=== PATIENT | female | born 1965 | race Asian ===

== ENCOUNTER 2018-08-22 12:35 | Outpatient (CLI) | payer OTHER ==
[~2018-08-22 12:35] MED LIST: ISOVUE-370 76%-LOCM 1 ML ONE
--- NOTE | 2018-08-22 15:05 | CT ---
CT ABDOMEN WITH AND WITHOUT IV CONTRAST: Date: 08/22/18 HISTORY: Abnormal LFTs. Patient has history of previous liver surgery. Gas, bloating, and constipation. FINDINGS: Lung bases are clear. There are calcified granulomas in the spleen. The liver, pancreas, adrenal glands, and left kidney ar e normal. There is mild right-sided hydronephrosis. There are postop changes of cholecystectomy. The small bowel loops are not abnormally dilated. No free air, free fluid, or lymphadenopathy is seen. A few prominent retroperitoneal lymph nodes are seen measuring up to 6.0 mm. No acute osseous abnormali ty identified. There are chronic changes, likely post-traumatic, in the left iliac bone. IMPRESSION: 1. Mild right hydronephrosis. 2. Status post cholecystectomy without evidence of biliary obstruction. POS: [facility]
== END 2018-08-22 12:36 | disposition home or self-care (01) ==
LOC: BICCT 12:35
PROVIDERS: ATTEND Family Medicine
DX: R79.89 Other specified abnormal findings of blood chemistry (principal); R14.0 Abdominal distension (gaseous); N13.30 Unspecified hydronephrosis; Z90.49 Acquired absence of other specified parts of digestive tract
CPT/HCPCS: 74170

== ENCOUNTER 2018-12-06 22:05 | Inpatient (IN) | payer OTHER ==
[2018-12-06 22:58] LABS: Bilirubin Moderate (Negative); Blood, Urine Negative (Negative); Clarity CLOUDY (Clear); Glucose, Urine (Dipstick) Negative (Negative); Leukocyte Small (Negative); Nitrite Positive (Negative); Protein, Urine (Dipstick) Trace mg/dL (Neg-Trace); pH, Urine 5.5 (5.0-9.0)
[2018-12-06 22:59] LABS: Pregnancy Test - Urine (BHCG) Negative (Negative); Pregu Control Background? CLEAR/WHITE (CLR/WHITE); Pregu Control Bar Appear? YES (CONTROL BAR)
[2018-12-06 23:13] LABS: RBC/HPF 0-3 HPF (0-3)
[2018-12-06 23:14] LABS: Crystals/HPF 2+ CA OXALATE HPF (Negative)
[2018-12-06 23:15] LABS: Bacteria/HPF Rare-Few HPF (None Seen)
[2018-12-06 23:16] LABS: Squamous Epithelial 0-3 HPF (0-3)
[2018-12-06] MEDS ORDERED: Ondansetron PF 4 MG/2 ML Vial ONE (23:19)
[2018-12-06] MEDS ORDERED: Pantoprazole 40 MG VIAL ONE (23:19)
[2018-12-07] MEDS ORDERED: cefTRIAXone\\ROCEPHIN 1 GM VIAL ONE (00:29)
[2018-12-07 00:33] LABS: ALT (SGPT) 474 U/L (8-55); AST (SGOT) 646 U/L (5-34); Alkaline Phosphatase 235 U/L (40-150); Anion Gap 17 mmol/L (10-20); BUN (Urea Nitrogen) 18 mg/dL (9.8-20.1); Bilirubin, Total 3.4 mg/dL (0.2-1.2); Calc. Creatinine Clearance 0 mL/min (70-130); Calcium 10.1 mg/dL (7.8-10.44); Carbon Dioxide 21 mmol/L (22-29); Chloride 106 mmol/L (98-107); Estimated GFR-MDRD 74; Glucose 119 mg/dL (70-105); Lipase 12 U/L (8-78); Potassium 3.5 mmol/L (3.5-5.1); Sodium 140 mmol/L (136-145)
[2018-12-07 00:34] LABS: Band 39 % (5-11); Hemoglobin 12.6 g/dL (12.0-16.0); Lymphocytes 4 % (21-51); MDiff Complete? YES; Mean Corpuscular HGB CONC 33.5 g/dL (32.0-36.0); Mean Corpuscular Hemoglobin 30.6 pg (27.0-31.0); Mean Corpuscular Volume 91.4 fL (78.0-98.0); Mean Platelet Volume 7.9 fL (7.4-10.4); Monocytes 1 % (0-10); Neutrophil 56 % (42-75); Platelet Count 195 thou/uL (130-400); Platelet Morphology Comment Appears Adequate; RBC Distribution Width 11.4 % (11.5-14.5); Red Blood Cell (RBC) Count 4.11 mill/uL (4.20-5.40); White Blood Cell (WBC) Count 7.1 thou/uL (4.8-10.8)
[2018-12-07] MEDS ORDERED: Morphine 4 MG/ML VIAL ONE (00:54)
[2018-12-07] MEDS ORDERED: Morphine 4 MG/ML VIAL SLOW IVP PRN ×2 (02:36→02:37)
[2018-12-07] MEDS ORDERED: Sodium Chloride 0.9% 1,000 ML IV SCH (02:37)
[2018-12-07] MEDS ORDERED: Ondansetron ODT 4 MG TAB SL PRN (02:37)
[2018-12-07] MEDS ORDERED: Ondansetron PF 4 MG/2 ML Vial IVP PRN (02:37)
[2018-12-07] MEDS ORDERED: Bisacodyl 5 MG TAB PO PRN (10:27)
[2018-12-07] MEDS ORDERED: Sodium Chloride 0.65% Nasal 44 ML BOT EA NARE PRN (10:27)
[2018-12-07] MEDS ORDERED: Acetaminophen 500 MG TAB PO PRN (10:27)
[2018-12-07] MEDS ORDERED: Diabetic Tussin 200 MG/10 ML UDCUP PO PRN (10:27)
[2018-12-07] MEDS ORDERED: Zolpidem Tartrate 5 MG TAB PO PRN (10:27)
[2018-12-07] MEDS ORDERED: Artificial Tears 18 DROP/0.9 ML EA EYE PRN (10:27)
[2018-12-07] MEDS ORDERED: Cepastat Lozenges 1 LOZ PO PRN (10:27)
[2018-12-07] MEDS ORDERED: hydrALAZINE 20 MG/ML VIAL SLOW IVP PRN (10:27)
[2018-12-07] MEDS ORDERED: Loratadine 10 MG TAB PO PRN (10:27)
[2018-12-07] MEDS ORDERED: Eucerin (Mineral Oil/Petrolatum,White) 30 gm Jar TOP PRN (10:27)
[2018-12-07] MEDS ORDERED: HYDROcodone/Acetaminophen 5/325 mg Tablet PO PRN (10:27)
[2018-12-07] MEDS ORDERED: Ondansetron ODT 4 MG TAB PO PRN (10:27)
[2018-12-07] MEDS ORDERED: Dextrose 50% Abboject 50 ML SYRINGE SLOW IVP PRN (10:29)
[2018-12-07] MEDS ORDERED: Dextrose 5% in Water 1,000 ML IV PRN (10:29)
[2018-12-07] MEDS ORDERED: HumaLOG 300 UNITS/3 ML VIAL SC PRN ×2 (10:29)
[2018-12-07 10:39] LABS: INR-International Normal Ratio 1.3; Prothrombin Time 16.4 SEC (12.0-14.7)
[2018-12-07 10:40] LABS: PTT 38.7 SEC (22.9-36.1)
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
--- NOTE | 2018-12-07 11:14 | PDOC.EVN ---
Event Note - Event Note Event Note: Patient seen and examined. please see H & P dictated by MAGDA. discussed plan with him.
[2018-12-07] MEDS ORDERED: Gadobenate Dimeglumine 529 MG/1 ML (20ML VIAL) ONE (11:39)
[2018-12-07] MEDS: Morphine 4 MG/ML VIAL SLOW IVP PRN ×3 (12:15→21:21)
[2018-12-07] MEDS: Ondansetron PF 4 MG/2 ML Vial IVP PRN ×2 (12:16→21:22)
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
[2018-12-07] MEDS: Cholestyramine/Aspartame 4 gm Packet PO SCH ×2 (12:28→22:58)
--- NOTE | 2018-12-07 13:12 | MRI ---
MRI ABDOMEN WITH AND WITHOUT CONTAST WITH MRCP: INDICATION: Jaundice. History of choledocholithiasis. Nausea and vomiting. History of gallbladder removal in 2 014 with biliary stent. COMPARISON: Correlation is made to CT 08/22/2018. Common bile duct was noted to be dilated on that exam with post op clips in the gallbladder fossa. No evidence of biliary stent. FINDINGS: ERCP reveals intra- and extrahepatic biliary duct dilatation. There appears to be occlusion of the l ower common duct within the region of the head of the pancreas. This dilated common duct reveals dave dence of debris with fluid-fluid level. There are numerous focal signal abnormalities consistent wit h numerous small stones within the common duct. On the postcontrast arterial phase sequence, there is abnormal enhancement in the liver which appears to be linear following biliary ductal structures. This is concerning for changes of intrahepatic ch olangitis. The postcontrast images of the liver are homogeneous with no focal enhancement or abnormality. The spleen, pancreas, adrenal glands, and kidneys are unremarkable. IMPRESSION: 1. Intra- and extrahepatic biliary duct dilatation. Evidence of common duct stricture/occlusion in the region of the head of the pancreas. Debris within the common duct exhibits a fluid-fluid level a nd there are numerous small stones identified within the common duct. 2. Abnormal patchy enhancement of the liver seen on arterial phase post contrast sequence concerning for intrahepatic cholangitis. POS: [facility]
[2018-12-07] MEDS: cefTRIAXone\\ROCEPHIN 1 GM in Sodium Chloride 0.9% 100 ML IVPB SCH (13:31)
[2018-12-07] MEDS: Metoclopramide HCl 10 MG/2 ML VIAL IVP PRN (17:20)
[2018-12-08] MEDS: Morphine 4 MG/ML VIAL SLOW IVP PRN ×2 (00:19→04:13)
[2018-12-08] MEDS: Metoclopramide HCl 10 MG/2 ML VIAL IVP PRN ×2 (00:20→18:24)
[2018-12-08] MEDS: Dextrose 5 %-0.45 % NaCl 1,000 ML IV SCH ×2 (03:25→22:48)
[2018-12-08] MEDS: Ondansetron PF 4 MG/2 ML Vial IVP PRN ×2 (04:14→14:16)
[2018-12-08 06:06] LABS: #Eosinphils 0.1 thou/uL (0.0-0.7); #Lymphocytes 0.9 thou/uL (1.20-3.40); #Monocytes 0.5 thou/uL (0.11-0.59); #Neutrophils 8.1 thou/uL (1.40-6.50); %Basophils 0.2 % (0.0-1.0); %Lymphocytes 9.1 % (21.0-51.0); %Monocytes 5.6 % (0.0-10.0); %Neutrophils 84.2 % (42.0-75.0); Hemoglobin 11.1 g/dL (12.0-16.0); Mean Corpuscular HGB CONC 33.1 g/dL (32.0-36.0); Mean Corpuscular Hemoglobin 30.8 pg (27.0-31.0); Mean Corpuscular Volume 93.2 fL (78.0-98.0); Mean Platelet Volume 8.6 fL (7.4-10.4); Platelet Count 173 thou/uL (130-400); RBC Distribution Width 11.5 % (11.5-14.5); Red Blood Cell (RBC) Count 3.62 mill/uL (4.20-5.40); White Blood Cell (WBC) Count 9.6 thou/uL (4.8-10.8)
[2018-12-08 06:20] LABS: ALT (SGPT) 250 U/L (8-55); AST (SGOT) 162 U/L (5-34); Albumin 3.4 g/dL (3.5-5.0); Alkaline Phosphatase 197 U/L (40-150); Anion Gap 12 mmol/L (10-20); BUN (Urea Nitrogen) 14 mg/dL (9.8-20.1); Bilirubin, Direct 2.9 mg/dL (0.1-0.3); Bilirubin, Total 4.4 mg/dL (0.2-1.2); Calc. Creatinine Clearance 153 mL/min (70-130); Calcium 8.8 mg/dL (7.8-10.44); Carbon Dioxide 21 mmol/L (22-29); Chloride 107 mmol/L (98-107); Estimated GFR-MDRD Greater than 90; Glucose 91 mg/dL (70-105); Protein, Total 6.2 g/dL (6.0-8.3); Sodium 137 mmol/L (136-145)
[2018-12-08 06:43] LABS: HBSAg Index 0.19 S/CO (0-0.99); Hep A IgM AB Non-Reactive (NonReactive); Hep B Surf Ag Non-Reactive S/CO (NonReactive); Hep C IgG Ab Non-Reactive (NonReactive); Hep C Index 0.07 S/CO (0-0.79); Hepatitis B Core IgM Abs Non-Reactive (NonReactive)
[2018-12-08] MEDS ORDERED: Midazolam HCl 2 mg/2 ml Vial ONE (08:13)
[2018-12-08] MEDS ORDERED: Fentanyl 100 MCG/2 ML VIAL ONE (08:13)
[2018-12-08] MEDS ORDERED: Ondansetron PF 4 MG/2 ML Vial ONE (09:25)
--- NOTE | 2018-12-08 09:41 | PDOC.PN ---
- Subjective Encounter Start Date: 12/08/18 Encounter Start Time: 07:50 -: old records requested/rev Patient seen and examined. c/o right UQ pain, No overnight events - Objective Resuscitation Status - Order Detail: 12/07/18 09:59 Resuscitation Status Routine Co-Sign Provider: Resuscitation Status: FULL: Full Resuscitation MAR Reviewed: Yes Vital Signs & Weight: Vital Signs (12 hours) Temp Pulse Resp BP Pulse Ox 12/08/18 07:18 98.5 F 68 20 105/64 95 12/08/18 04:00 98.5 F 71 16 110/67 96 12/08/18 00:00 98.7 F 73 18 116/67 96 Weight Weight 213 lb 13.574 oz I&O: 12/07/18 12/08/18 12/09/18 06:59 06:59 06:59 Intake Total 431 Balance 431 Result Diagrams: 12/08/18 05:24 12/08/18 05:24 Additional Labs: Accuchecks 12/08/18 12/07/18 12/07/18 06:25 21:22 16:11 POC Glucose 103 80 94 12/07/18 11:09 POC Glucose 81 Phys Exam - Physical Examination Constitutional: NAD HEENT: PERRLA, moist MMs, sclera anicteric Neck: no JVD, supple Respiratory: no wheezing, no rales, no rhonchi Cardiovascular: RRR, no significant murmur, no rub Gastrointestinal: soft, no distention, positive bowel sounds RUQ tenderness Musculoskeletal: no edema, pulses present Neurological: non-focal, normal sensation, moves all 4 limbs Lymphatic: no nodes Psychiatric: normal affect, A&O x 3 Skin: no rash, normal turgor Dx/Plan (1) Abnormal LFTs Code(s): R94.5 - ABNORMAL RESULTS OF LIVER FUNCTION STUDIES Status: Acute (2) Cholangitis Code(s): K83.09 - OTHER CHOLANGITIS Status: Acute (3) Choledocholithiasis with obstruction Code(s): K80.51 - CALCULUS OF BILE DUCT W/O CHOLANGITIS OR CHOLECYST W OBST Status: Acute (4) Hypokalemia Code(s): E87.6 - HYPOKALEMIA Status: Acute (5) UTI (urinary tract infection) Status: Acute (6) Diabetes type 2, controlled Code(s): E11.9 - TYPE 2 DIABETES MELLITUS WITHOUT COMPLICATIONS Status: Chronic (7) Obesity (BMI 30.0-34.9) Code(s): E66.9 - OBESITY, UNSPECIFIED Status: Chronic - Plan cont current plan of care, continue antibiotics * today ERCP * continue rocephin and levaquin * medication reviewed as below * symptomatic treatment * pain control and monitor labs. * continue ivf Review of Systems - Review of Systems Constitutional: negative: fever, chills, sweats, weakness, malaise, other Eyes: negative: Pain, Vision Change, Conjunctivae Inflammation, Eyelid Inflammation, Redness, Other ENT: negative: Ear Pain, Ear Discharge, Nose Pain, Nose Discharge, Nose Congestion, Mouth Pain, Mouth Swelling, Throat Pain, Throat Swelling, Other Respiratory: negative: Cough, Dry, Shortness of Breath, Hemoptysis, SOB with Excertion, Pleuritic Pain, Sputum, Wheezing Cardiovascular: negative: chest pain, palpitations, orthopnea, paroxysmal nocturnal dyspnea, edema, light headedness, other Gastrointestinal: Abdominal Pain. negative: Nausea, Vomiting, Diarrhea, Constipation, Melena, Hematochezia, Other Genitourinary: negative: Dysuria, Frequency, Incontinence, Hematuria, Retention , Other Musculoskeletal: negative: Neck Pain, Shoulder Pain, Arm Pain, Back Pain, Hand Pain, Leg Pain, Foot Pain, Other Skin: negative: Rash, Lesions, Stan, Bruising, Other - Medications/Allergies Allergies/Adverse Reactions: Allergies Allergy/AdvReac Type Severity Reaction Status Date / Time No Known Drug Allergies Allergy Verified 12/07/18 03:01 Medications: Current Medications Acetaminophen (Tylenol) 500 mg PO Q6H PRN PRN Reason: Mild Pain (1-3) Hydrocodone Bitart/Acetaminophen ([place] 5/325) 1 tab PO Q4H PRN PRN Reason: Moderate Pain (4-6) Artificial Tears (Tears Naturale) 2 drop EA EYE PRN PRN PRN Reason: Dry Eyes Bisacodyl (Dulcolax) 10 mg PO DAILYPRN PRN PRN Reason: Constipation Cholestyramine Resin (Questran Light) 4 gm PO 1000,2200 NIKKI Last Admin: 12/07/18 22:58 Dose: Not Given Dextrose/Water (Dextrose 50%) 25 gm SLOW IVP PRN PRN PRN Reason: Hypoglycemia Glucagon (Glucagon) 1 mg IM PRN PRN PRN Reason: Hypoglycemia Guaifenesin (Robitussin Sf) 200 mg PO Q4H PRN PRN Reason: Cough Hydralazine HCl (Apresoline) 10 mg SLOW IVP Q4H PRN PRN Reason: SBP > 180 and HR < 70 Ceftriaxone Sodium 1 gm/ (Sodium Chloride) 100 mls @ 0 mls/hr IVPB 1200 [facility] Last Admin: 12/07/18 13:31 Dose: 100 mls Levofloxacin 500 mg/ Device 100 mls @ 100 mls/hr IVPB 1100 [facility] Last Admin: 12/07/18 12:16 Dose: 100 mls Dextrose/Water (D5w) 1,000 mls @ 0 mls/hr IV .Q0M PRN PRN Reason: Hypoglycemia Dextrose/Sodium Chloride (D5 1/2 Ns) 1,000 mls @ 75 mls/hr IV .[id number] [facility] Last Admin: 12/08/18 03:25 Dose: 1,000 mls Insulin Human Lispro (Humalog) 0 units SC .MODERATE SLIDING SC PRN PRN Reason: Moderate Correctional Scale Insulin Human Lispro (Humalog) 0 units SC .BEDTIME SLIDING SC PRN PRN Reason: Bedtime Correctional Scale Loratadine (Claritin) 10 mg PO DAILYPRN PRN PRN Reason: Sinus Symptoms Metoclopramide HCl (Reglan) 5 mg IVP Q4H PRN PRN Reason: Nausea Last Admin: 12/08/18 00:20 Dose: 5 mg Mineral Oil/White Petrolatum (Eucerin Cream) 0 gm TOP BIDPRN PRN PRN Reason: Dry Skin Morphine Sulfate (Morphine) 4 mg SLOW IVP Q2H PRN PRN Reason: Severe Pain (7-10) Last Admin: 12/08/18 04:13 Dose: 4 mg Ondansetron HCl (Zofran Odt) 4 mg PO Q6H PRN PRN Reason: Nausea/Vomiting Ondansetron HCl (Zofran) 4 mg IVP Q6H PRN PRN Reason: Nausea/Vomiting Last Admin: 12/08/18 04:14 Dose: 4 mg Sodium Chloride (Flush - Normal Saline) 10 ml IVF Q12HR [facility] Last Admin: 12/07/18 22:58 Dose: Not Given Sodium Chloride (Flush - Normal Saline) 10 ml IVF PRN PRN PRN Reason: Saline Flush Sodium Chloride ([place] Nasal [place] 0.65%) 0 ml EA NARE QIDPRN PRN PRN Reason: Nasal Congestion Throat Lozenges (Cepastat Lozenges) 1 marija PO Q2H PRN PRN Reason: Sore Throat Zolpidem Tartrate (Ambien) 5 mg PO HSPRN PRN PRN Reason: Insomnia
[2018-12-08] MEDS ORDERED: Indomethacin 50 MG SUPP ONE (10:20)
[2018-12-08] MEDS ORDERED: Iothalamate Meglumine 60% 50 ML VIAL FS ONE (10:20)
[2018-12-08] MEDS ORDERED: Promethazine HCl 25 MG/ML VIAL IM PRN (11:19)
[2018-12-08] MEDS ORDERED: Promethazine HCl 25 MG/ML VIAL SLOW IVP PRN (11:19)
[2018-12-08] MEDS ORDERED: Ondansetron HCl/PF 4 MG/2 ML Vial IVP PRN (11:19)
[2018-12-08] MEDS: cefTRIAXone\\ROCEPHIN 1 GM in Sodium Chloride 0.9% 100 ML IVPB SCH (12:03)
[2018-12-08] MEDS: Cholestyramine/Aspartame 4 gm Packet PO SCH ×2 (12:04→22:48)
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
--- NOTE | 2018-12-08 13:41 | OP ---
DATE OF PROCEDURE: 12/08/2018 PREOPERATIVE DIAGNOSIS: Choledocholithiasis by magnetic resonance cholangiopancreatography, recurrent. DESCRIPTION OF PROCEDURE: After informed consent was obtained, the patient was placed in left lateral decubitus position. Anesthesia administered per the Anesthesia Department. Side-viewing endoscope was inserted into esophagus under direct visualization with ease and passed to the second portion of the duodenum with ease. Second portion of the duodenum was normal. The duodenal bulb was normal. No mucosal abnormalities were noted. Her previously noted sphincterotomy was seen and this sphincterotomy could not be extended. A small orifice was noted at the ampulla. Initially, a cannula was inserted and cholangiogram revealed a large number of filling defects. A 50-mm balloon was used and could not pass the orifice. The biliary tree was somewhat dilated. At this point, a stent was placed at 7 cm, 11.5-Romansh stent without difficulty. Good drainage of bile flow was noted afterwards. ASSESSMENT: 1. Multiple large stones in a dilated biliary tree. 2. Small post sphincterotomy orifice. 3. Status post stent placement. RECOMMENDATIONS: Our options at this point would include Actigall with repeat endoscopic retrograde cholangiopancreatography in 3 months. This would include Actigall for life since this patient has had recurrent problems, and I think this is her third episode of choledocholithiasis. Other options would include a referral to a tertiary center or consideration of a choledochoduodenostomy. I will discuss with the patient when she is fully awake from anesthesia. Job ID: [id number]
[2018-12-08] MEDS ORDERED: Ketorolac Tromethamine 30 MG/ML VIAL ONE (14:14)
[2018-12-08] MEDS: Ketorolac Tromethamine 30 MG/ML VIAL IVP PRN (14:16)
[2018-12-08] MEDS ORDERED: Dexamethasone 20 MG/5 ML VIAL ONE (16:55)
[2018-12-08] MEDS ORDERED: Succinylcholine Chloride 20 MG/ML 10 ml SYRINGE FS ONE (16:55)
[2018-12-08] MEDS ORDERED: PROPOFOL 200 MG/20 ML VIAL ONE (16:55)
[2018-12-08] MEDS ORDERED: Glycopyrrolate 0.2 MG/ML 5 ML SYRINGE ONE (16:55)
[2018-12-08] MEDS ORDERED: Rocuronium Bromide 10 MG/ML (10ML VIAL) ONE (16:55)
[2018-12-09] MEDS: Ondansetron PF 4 MG/2 ML Vial IVP PRN ×3 (03:39→16:49)
[2018-12-09] MEDS: Ketorolac Tromethamine 30 MG/ML VIAL IVP PRN ×3 (03:39→16:46)
[2018-12-09] MEDS: Dextrose 5 %-0.45 % NaCl 1,000 ML IV SCH (06:31)
[2018-12-09 06:41] LABS: #Lymphocytes 1.1 thou/uL (1.20-3.40); #Monocytes 0.5 thou/uL (0.11-0.59); %Basophils 0.2 % (0.0-1.0); %Eosinophils 0.5 % (0.0-10.0); %Lymphocytes 12.3 % (21.0-51.0); %Monocytes 5.4 % (0.0-10.0); %Neutrophils 81.5 % (42.0-75.0); Hemoglobin 10.8 g/dL (12.0-16.0); Mean Corpuscular HGB CONC 33.5 g/dL (32.0-36.0); Mean Corpuscular Hemoglobin 30.8 pg (27.0-31.0); Mean Corpuscular Volume 91.8 fL (78.0-98.0); Mean Platelet Volume 8.7 fL (7.4-10.4); Platelet Count 176 thou/uL (130-400); RBC Distribution Width 11.3 % (11.5-14.5); Red Blood Cell (RBC) Count 3.52 mill/uL (4.20-5.40); White Blood Cell (WBC) Count 8.6 thou/uL (4.8-10.8)
[2018-12-09 07:08] LABS: ALT (SGPT) 167 U/L (8-55); AST (SGOT) 69 U/L (5-34); Albumin 3.2 g/dL (3.5-5.0); Alkaline Phosphatase 207 U/L (40-150); Anion Gap 9 mmol/L (10-20); BUN (Urea Nitrogen) 12 mg/dL (9.8-20.1); Bilirubin, Total 1.7 mg/dL (0.2-1.2); Calc. Creatinine Clearance 133 mL/min (70-130); Carbon Dioxide 24 mmol/L (22-29); Chloride 108 mmol/L (98-107); Estimated GFR-MDRD 81; Globulin 2.9 g/dL (2.4-3.5); Glucose 150 mg/dL (70-105); Potassium 3.4 mmol/L (3.5-5.1); Protein, Total 6.1 g/dL (6.0-8.3); Sodium 138 mmol/L (136-145)
[2018-12-09] MEDS ORDERED: Potassium Chloride 20 MEQ TAB PO SCH (07:30)
--- NOTE | 2018-12-09 10:24 | PDOC.PN ---
- Subjective Encounter Start Date: 12/09/18 Encounter Start Time: 07:40 Patient seen and examined. No overnight events pt has nausea but no vomiting - Objective Resuscitation Status - Order Detail: 12/07/18 09:59 Resuscitation Status Routine Co-Sign Provider: Resuscitation Status: FULL: Full Resuscitation MAR Reviewed: Yes Vital Signs & Weight: Vital Signs (12 hours) Temp Pulse Resp BP BP Pulse Ox 12/09/18 08:00 98.4 F 76 15 101/57 L 98 12/09/18 04:00 98.5 F 61 16 122/73 98 12/09/18 00:00 98.5 F 61 12 104/66 98 Weight Weight 213 lb 13.574 oz I&O: 12/08/18 12/09/18 12/10/18 06:59 06:59 06:59 Intake Total 1825 1500 Balance 1825 1500 Result Diagrams: 12/09/18 05:56 12/09/18 05:56 Additional Labs: Accuchecks 12/08/18 12/08/18 20:18 15:41 POC Glucose 183 H 164 H Phys Exam - Physical Examination Constitutional: NAD HEENT: PERRLA, moist MMs, sclera anicteric Neck: no JVD, supple Respiratory: no wheezing, no rales, no rhonchi Cardiovascular: RRR, no significant murmur, no rub Gastrointestinal: soft, non-tender, no distention, positive bowel sounds Musculoskeletal: no edema, pulses present Neurological: non-focal, normal sensation Lymphatic: no nodes Psychiatric: normal affect, A&O x 3 Skin: no rash, normal turgor Dx/Plan (1) Abnormal LFTs Code(s): R94.5 - ABNORMAL RESULTS OF LIVER FUNCTION STUDIES Status: Acute (2) Cholangitis Code(s): K83.09 - OTHER CHOLANGITIS Status: Acute (3) Choledocholithiasis with obstruction Code(s): K80.51 - CALCULUS OF BILE DUCT W/O CHOLANGITIS OR CHOLECYST W OBST Status: Acute (4) Hypokalemia Code(s): E87.6 - HYPOKALEMIA Status: Acute (5) UTI (urinary tract infection) Status: Acute (6) Diabetes type 2, controlled Code(s): E11.9 - TYPE 2 DIABETES MELLITUS WITHOUT COMPLICATIONS Status: Chronic (7) Obesity (BMI 30.0-34.9) Code(s): E66.9 - OBESITY, UNSPECIFIED Status: Chronic - Plan cont current plan of care, continue antibiotics * medication reviewed as below * symptomatic treatment * continue iv antibiotics, rocephin and levaquin * nausea control. Review of Systems - Review of Systems ENT: negative: Ear Pain, Ear Discharge, Nose Pain, Nose Discharge, Nose Congestion, Mouth Pain, Mouth Swelling, Throat Pain, Throat Swelling, Other Respiratory: negative: Cough, Dry, Shortness of Breath, Hemoptysis, SOB with Excertion, Pleuritic Pain, Sputum, Wheezing Cardiovascular: negative: chest pain, palpitations, orthopnea, paroxysmal nocturnal dyspnea, edema, light headedness, other Gastrointestinal: Nausea. negative: Vomiting, Abdominal Pain, Diarrhea, Constipation, Melena, Hematochezia, Other Genitourinary: negative: Dysuria, Frequency, Incontinence, Hematuria, Retention , Other Musculoskeletal: negative: Neck Pain, Shoulder Pain, Arm Pain, Back Pain, Hand Pain, Leg Pain, Foot Pain, Other Skin: negative: Rash, Lesions, Stan, Bruising, Other - Medications/Allergies Allergies/Adverse Reactions: Allergies Allergy/AdvReac Type Severity Reaction Status Date / Time No Known Drug Allergies Allergy Verified 12/07/18 03:01 Medications: Current Medications Acetaminophen (Tylenol) 500 mg PO Q6H PRN PRN Reason: Mild Pain (1-3) Hydrocodone Bitart/Acetaminophen (Fine 5/325) 1 tab PO Q4H PRN PRN Reason: Moderate Pain (4-6) Artificial Tears (Tears Naturale) 2 drop EA EYE PRN PRN PRN Reason: Dry Eyes Bisacodyl (Dulcolax) 10 mg PO DAILYPRN PRN PRN Reason: Constipation Cholestyramine Resin (Questran Light) 4 gm PO 1000,2200 NIKKI Last Admin: 12/08/18 22:48 Dose: 4 gm Dextrose/Water (Dextrose 50%) 25 gm SLOW IVP PRN PRN PRN Reason: Hypoglycemia Glucagon (Glucagon) 1 mg IM PRN PRN PRN Reason: Hypoglycemia Guaifenesin (Robitussin Sf) 200 mg PO Q4H PRN PRN Reason: Cough Hydralazine HCl (Apresoline) 10 mg SLOW IVP Q4H PRN PRN Reason: SBP > 180 and HR < 70 Levofloxacin 500 mg/ Device 100 mls @ 100 mls/hr IVPB 1100 NIKKI Last Admin: 12/08/18 12:03 Dose: 100 mls Dextrose/Water (D5w) 1,000 mls @ 0 mls/hr IV .Q0M PRN PRN Reason: Hypoglycemia Dextrose/Sodium Chloride (D5 1/2 Ns) 1,000 mls @ 75 mls/hr IV .[id number] [facility] Last Admin: 12/09/18 06:31 Dose: Not Given Ceftriaxone Sodium 1 gm/ (Sodium Chloride) 100 mls @ 0 mls/hr IVPB 1200 NIKKI Insulin Human Lispro (Humalog) 0 units SC .MODERATE SLIDING SC PRN PRN Reason: Moderate Correctional Scale Last Admin: 12/08/18 16:34 Dose: 2 unit Insulin Human Lispro (Humalog) 0 units SC .BEDTIME SLIDING SC PRN PRN Reason: Bedtime Correctional Scale Ketorolac Tromethamine (Toradol) 15 mg IVP Q6H PRN PRN Reason: PAIN/HEADACHE Stop: 12/13/18 14:40 Last Admin: 12/09/18 03:39 Dose: 15 mg Loratadine (Claritin) 10 mg PO DAILYPRN PRN PRN Reason: Sinus Symptoms Metoclopramide HCl (Reglan) 5 mg IVP Q4H PRN PRN Reason: Nausea Last Admin: 12/08/18 18:24 Dose: 5 mg Mineral Oil/White Petrolatum (Eucerin Cream) 0 gm TOP BIDPRN PRN PRN Reason: Dry Skin Morphine Sulfate (Morphine) 4 mg SLOW IVP Q2H PRN PRN Reason: Severe Pain (7-10) Last Admin: 12/08/18 04:13 Dose: 4 mg Ondansetron HCl (Zofran Odt) 4 mg PO Q6H PRN PRN Reason: Nausea/Vomiting Ondansetron HCl (Zofran) 4 mg IVP Q6H PRN PRN Reason: Nausea/Vomiting Last Admin: 12/09/18 03:39 Dose: 4 mg Sodium Chloride (Flush - Normal Saline) 10 ml IVF Q12HR [facility] Last Admin: 12/09/18 07:59 Dose: Not Given Sodium Chloride (Flush - Normal Saline) 10 ml IVF PRN PRN PRN Reason: Saline Flush Sodium Chloride ([place] Nasal [place] 0.65%) 0 ml EA NARE QIDPRN PRN PRN Reason: Nasal Congestion Throat Lozenges (Cepastat Lozenges) 1 marija PO Q2H PRN PRN Reason: Sore Throat Zolpidem Tartrate (Ambien) 5 mg PO HSPRN PRN PRN Reason: Insomnia
[2018-12-09] MEDS: Cholestyramine/Aspartame 4 gm Packet PO SCH ×2 (10:42→20:54)
[2018-12-09] MEDS: cefTRIAXone\\ROCEPHIN 1 GM in Sodium Chloride 0.9% 100 ML IVPB SCH (11:39)
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
[2018-12-09] MEDS: Morphine 4 MG/ML VIAL SLOW IVP PRN ×2 (16:49→21:01)
[2018-12-10] MEDS: Ondansetron PF 4 MG/2 ML Vial IVP PRN (00:19)
[2018-12-10] MEDS: Dextrose 5 %-0.45 % NaCl 1,000 ML IV SCH ×2 (03:28→09:33)
[2018-12-10 07:14] LABS: #Eosinphils 0.2 thou/uL (0.0-0.7); #Lymphocytes 1.3 thou/uL (1.20-3.40); #Monocytes 0.4 thou/uL (0.11-0.59); #Neutrophils 4.2 thou/uL (1.40-6.50); %Basophils 0.7 % (0.0-1.0); %Eosinophils 3.2 % (0.0-10.0); %Neutrophils 68.3 % (42.0-75.0); Hemoglobin 10.4 g/dL (12.0-16.0); Mean Corpuscular HGB CONC 32.2 g/dL (32.0-36.0); Mean Corpuscular Hemoglobin 30.3 pg (27.0-31.0); Mean Platelet Volume 8.4 fL (7.4-10.4); Platelet Count 178 thou/uL (130-400); RBC Distribution Width 11.5 % (11.5-14.5); Red Blood Cell (RBC) Count 3.44 mill/uL (4.20-5.40); White Blood Cell (WBC) Count 6.1 thou/uL (4.8-10.8)
[2018-12-10 08:42] LABS: ALT (SGPT) 110 U/L (8-55); AST (SGOT) 35 U/L (5-34); Albumin 3.1 g/dL (3.5-5.0); Alkaline Phosphatase 178 U/L (40-150); Anion Gap 8 mmol/L (10-20); BUN (Urea Nitrogen) 10 mg/dL (9.8-20.1); Calc. Creatinine Clearance 156 mL/min (70-130); Calcium 8.5 mg/dL (7.8-10.44); Carbon Dioxide 24 mmol/L (22-29); Chloride 110 mmol/L (98-107); Estimated GFR-MDRD Greater than 90; Globulin 2.7 g/dL (2.4-3.5); Glucose 108 mg/dL (70-105); Potassium 3.4 mmol/L (3.5-5.1); Protein, Total 5.8 g/dL (6.0-8.3); Sodium 139 mmol/L (136-145)
[2018-12-10] MEDS: Cholestyramine/Aspartame 4 gm Packet PO SCH (09:33)
[2018-12-10] MEDS ORDERED: Potassium Chloride 20 MEQ TAB PO SCH (10:00)
--- NOTE | 2018-12-10 11:03 | DIS ---
DATE OF ADMISSION: 12/07/2018 DATE OF DISCHARGE: 12/10/2018 PRIMARY CARE PHYSICIAN: [facility] call admission. DISCHARGE DISPOSITION: [employer]. PRIMARY DISCHARGE DIAGNOSIS: Choledocholithiasis with obstruction, status post ERCP with stent placement, cholangitis, hypokalemia, abnormal LFT, urinary tract infection. SECONDARY DISCHARGE DIAGNOSES: Diabetes type 2, obesity. PRIMARY PROCEDURE/OPERATION: ERCP was done by Dr. Campo and found with multiple large stone and dilated biliary tree. Sphincterotomy was performed and stent was placed. RADIOLOGICAL INVESTIGATION: Abdomen MRI showed intra and extrahepatic biliary ductal dilatation. Common duct stricture. Intrahepatic cholangitis. SIGNIFICANT LABORATORY DATA: WBC 6.1, hemoglobin 10.4, platelet 178. INR 1.3. Sodium 139, potassium 3.4, BUN 10, creatinine 0.64, bilirubin 1.0, AST 35, ALT 110, alkaline phosphatase 178, albumin 3.1. Lipase 12. Urinalysis suggestive of UTI. Hepatitis profile negative. Urine culture negative. DISCHARGE MEDICATION: 1. Metformin 500 mg p.o. daily. 2. Questran Light 4 g p.o. b.i.d. 3. Levaquin 500 mg p.o. daily for 7 days. 4. Reglan 10 mg p.o. q.i.d. p.r.n. for nausea, vomiting. 5. Zofran 4 mg q.6 hourly p.r.n. for nausea, vomiting. 6. Protonix 40 mg p.o. daily. 7. Tramadol 50 mg t.i.d. p.r.n. CONTRAINDICATION: None. CODE STATUS: Full code. INPATIENT FURNITURE SPRAYER: Dr. Campo was following while in hospital. TEST RESULTS PENDING ON DISCHARGE: None. ALLERGIES: NO KNOWN DRUG ALLERGIES. DISCHARGE PLAN: Post hospital, the patient will need to follow up with Dr. Claude Campo in one week. The patient will follow up with primary care physician. HOSPITAL COURSE: A 53-year-old female, who was admitted by nurse practitioner, Reynaldo Akbar, please see his H and P for further details. The patient presented with nausea, vomiting, right upper quadrant epigastric pain. The patient was having dyspepsia symptoms. The patient was found with abnormal LFT with jaundice. She was having significant amount of nausea and inability to tolerate p.o. She was given IV fluid. Her urinalysis was also consistent with UTI. Dr. Campo was consulted while in hospital, he did MRI abdomen which showed choledocholithiasis with stone and bile duct stricture. The patient also found with intrahepatic biliary cholangitis. The patient was given broad-spectrum antibiotic therapy with Rocephin and Levaquin while in hospital. Her culture remained negative. The patient underwent ERCP with sphincterotomy and stent placement. This patient empirically treated while in hospital with Zofran and Reglan. Questran was added. Electrolytes were corrected and IV fluid was given for hydration. By the time of discharge, the patient's symptomatology is under control. The GI team has already signed off on this patient and they wanted to see her as early as possible in the clinic and they will refer [facility] for more workup if needed. I have seen and examined the patient at bedside today. The patient wants to go back [facility] [employer] [facility] today. PHYSICAL EXAMINATION: VITAL SIGNS: Currently, temperature 98.0, pulse 60, respiratory rate 18, saturation 97%, blood pressure 121/76. Weight 213 pounds. GENERAL: The patient is currently alert, awake, no obvious acute distress. HEENT: Head; normocephalic, atraumatic. Eyes; pupils round, reactive to light. Extraocular muscles intact. ENT; oropharynx within normal limits. Moist mucous membranes. No oral lesion. No pharyngeal erythema. No exudate. NECK: Supple. No JVD. No thyromegaly. No carotid bruit. LUNGS: Clear without any rhonchi. ABDOMEN: Soft and benign without any tenderness. EXTREMITIES: No edema. NEUROLOGIC: Nonfocal examination. ASSESSMENT AND PLAN: Overall, the patient is medically stable for discharge. All new medication prescription given to her. The patient is given necessary dietary education and followup was discussed with her. Job ID: [id number]
[2018-12-10] MEDS: cefTRIAXone\\ROCEPHIN 1 GM in Sodium Chloride 0.9% 100 ML IVPB SCH (11:17)
[2018-12-10 12:07] VITALS: BP 145/86; TEMP 98.3
== END 2018-12-10 13:00 | disposition home or self-care (01) | DRG 445 ==
LOC: ERS 22:05 → SURG A 12-07 02:21 → OBSVTOIN 12-07 02:21
PROVIDERS: ADMIT Internal Medicine; ATTEND Internal Medicine
PROC: 0F798DZ Dilation of Common Bile Duct with Intraluminal Device, Via Natural or Artificial Opening Endoscopic (ICD-10-PCS; principal; 2018-12-08)
DX: K80.31 Calculus of bile duct with cholangitis, unspecified, with obstruction (principal); N39.0 Urinary tract infection, site not specified; E11.9 Type 2 diabetes mellitus without complications; F32.9 Major depressive disorder, single episode, unspecified; I10 Essential (primary) hypertension; E87.6 Hypokalemia; E66.9 Obesity, unspecified; R79.89 Other specified abnormal findings of blood chemistry; Z79.84 Long term (current) use of oral hypoglycemic drugs; Z90.49 Acquired absence of other specified parts of digestive tract; Z98.890 Other specified postprocedural states; Z68.36 Body mass index [BMI] 36.0-36.9, adult
CPT/HCPCS: 36415; 36416; 74183; 74330; 80048; 80053; 80074; 80076; 81003; 81015; 81025; 83690; 85025; 85610; 85730; 87086; 96361; 96365; 96375; A9579; C9113; J0696; J1100; J1885; J1956; J2250; J2270; J2405; J2704; J2765; J3010; J7050; Q0162; Q9961

== ENCOUNTER 2019-01-06 05:52 | Day surgery (SDC) | payer OTHER ==
[2019-01-05 14:01] VITALS: BMI 25.5
--- NOTE | 2019-01-06 10:11 | OP ---
DATE OF PROCEDURE: 01/06/2019 PROCEDURE PERFORMED: Colonoscopy with polypectomy. INDICATION FOR PROCEDURE: Screening for malignant neoplasm of the colon. DESCRIPTION OF PROCEDURE: After the risks and benefits of the procedure were explained to the patient including risk of bleeding, infection, perforation, reactions to anesthesia, aspiration and/or pain, informed consent was obtained. The patient was then taken to the endoscopy suite, where deep sedation was administered via propofol and anesthesia support. Once adequate sedation was achieved, a digital rectal examination was performed followed by introduction of the standard colonoscope into the rectum and advanced to the cecum with mild difficulty due to tortuosity of the colon for redundancy of the colon and poor colonic prep. The quality of the prep was initially poor, but with aggressive irrigation and suctioning, was converted to a fair prep with large amount of both liquid and solid dark brown/black colored stool. The patient tolerated the procedure well with no immediate perioperative complications. The patient was then taken to Day Stay in satisfactory condition. COLONOSCOPY FINDINGS: Digital rectal exam, normal. Colon findings: A large amount of retained solid and liquid stool was seen throughout the entire colon with a dark brown/black coloration in appearance with aggressive irrigation and suctioning. The prep was converted to a fair prep, but achieved inadequate visualization of the colonic mucosa. Lesions less than 5 mm in size could have been missed of the mucosa seen. Normal mucosa was seen within the cecum as well as at the ileocecal valve and appendiceal orifice. Normal-appearing mucosa was seen in the ascending colon; however, a 3-mm sessile polyp was seen in the mid transverse colon and completely removed with biopsy forceps. It was retrieved and placed in a specimen jar for evaluation. Normal-appearing mucosa was then seen in the distal transverse and descending colons; however, a 3 to 4 mm polyp was seen in the sigmoid colon and completely removed with cold snare polypectomy. However, the polyp could not be retrieved due to the significant amount of retained fluid/stool that was suctioned along with the polyp and unable to determine in the specimen jar which was polyp and which was retained stool. Normal mucous was then seen in the rectum. On rectal retroflexion, hypertrophied anal papillae were seen along with small internal hemorrhoids. IMPRESSION: 1. Fair colonic preparation with a large amount of retained liquid and solid dark brown/black colored stool. 2. 3 mm transverse colon polyp, status post biopsy forceps. 3. 3 to 4 mm sigmoid colon polyp, status post cold snare but unable to be retrieved. 4. Small internal hemorrhoids. 5. Hypertrophied anal papillae. RECOMMENDATIONS: 1. We will follow up on the biopsy results, but would repeat the colonoscopy within the next 6 to 12 months due to inadequate colonic preparation seen today. 2. Would continue higher fiber diet given history of constipation and internal hemorrhoids. 3. Follow up in the GI Clinic in 3 to 4 weeks for followup regarding choledocholithiasis and/or constipation. 4. We would recommend MiraLAX administration for the treatment of her constipation. Job ID: [id number]
== END 2019-01-06 09:52 | disposition home or self-care (01) ==
LOC: SDC 05:52
PROVIDERS: ATTEND Internal Medicine
PROC: 0DBL8ZX Excision of Transverse Colon, Via Natural or Artificial Opening Endoscopic, Diagnostic (ICD-10-PCS; principal; 2019-01-06)
PROC: 0DBN8ZX Excision of Sigmoid Colon, Via Natural or Artificial Opening Endoscopic, Diagnostic (ICD-10-PCS; principal; 2019-01-06)
DX: Z12.11 Encounter for screening for malignant neoplasm of colon (principal); D12.3 Benign neoplasm of transverse colon; K63.89 Other specified diseases of intestine; K64.8 Other hemorrhoids; K62.89 Other specified diseases of anus and rectum; Z79.82 Long term (current) use of aspirin; Z79.84 Long term (current) use of oral hypoglycemic drugs; Z79.899 Other long term (current) drug therapy
CPT/HCPCS: 88305

== ENCOUNTER 2019-03-05 15:04 | Emergency (ER) | payer OTHER ==
[2019-03-05] MEDS ORDERED: Morphine 4 MG/ML VIAL ONE (16:58)
[2019-03-05] MEDS ORDERED: Ondansetron PF 4 MG/2 ML Vial ONE ×2 (16:59→19:20)
[2019-03-05 17:09] LABS: #Basophils 0.1 thou/uL (0.0-0.2); #Eosinphils 0.1 thou/uL (0.0-0.7); #Lymphocytes 1.8 thou/uL (1.20-3.40); #Monocytes 0.5 thou/uL (0.11-0.59); #Neutrophils 4.9 thou/uL (1.40-6.50); %Basophils 1.1 % (0.0-1.0); %Eosinophils 1.4 % (0.0-10.0); %Lymphocytes 24.4 % (21.0-51.0); %Monocytes 6.5 % (0.0-10.0); %Neutrophils 66.6 % (42.0-75.0); Hemoglobin 11.6 g/dL (12.0-16.0); Mean Corpuscular HGB CONC 30.8 g/dL (32.0-36.0); Mean Corpuscular Hemoglobin 27.2 pg (27.0-31.0); Mean Corpuscular Volume 88.5 fL (78.0-98.0); Mean Platelet Volume 8.7 fL (7.4-10.4); Platelet Count 267 thou/uL (130-400); RBC Distribution Width 11.8 % (11.5-14.5); Red Blood Cell (RBC) Count 4.24 mill/uL (4.20-5.40); White Blood Cell (WBC) Count 7.4 thou/uL (4.8-10.8)
[2019-03-05 17:32] LABS: ALT (SGPT) 20 U/L (8-55); AST (SGOT) 29 U/L (5-34); Albumin 4.6 g/dL (3.5-5.0); Alkaline Phosphatase 110 U/L (40-150); Anion Gap 13 mmol/L (10-20); BUN (Urea Nitrogen) 18 mg/dL (9.8-20.1); Bilirubin, Total 0.9 mg/dL (0.2-1.2); Calc. Creatinine Clearance 0 mL/min (70-130); Calcium 9.6 mg/dL (7.8-10.44); Carbon Dioxide 26 mmol/L (22-29); Chloride 104 mmol/L (98-107); Estimated GFR-MDRD 71; Globulin 3.3 g/dL (2.4-3.5); Glucose 103 mg/dL (70-105); Lipase 24 U/L (8-78); Potassium 4.4 mmol/L (3.5-5.1); Protein, Total 7.9 g/dL (6.0-8.3); Sodium 139 mmol/L (136-145)
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
[2019-03-05] MEDS ORDERED: Mag-Al 1200 mg/1200 mg/30 ML UDCUP ONE (20:16)
[2019-03-05] MEDS ORDERED: Lidocaine Viscous Sol 2% 15 ml UD Cup ONE (20:16)
[2019-03-05 20:19] LABS: Bilirubin Negative (Negative); Blood, Urine Negative (Negative); Clarity CLEAR (Clear); Glucose, Urine (Dipstick) Negative (Negative); Leukocyte Negative (Negative); Nitrite Negative (Negative); Protein, Urine (Dipstick) Negative (Neg-Trace); Specific Gravity, Urine 1.044 (1.002-1.036); Urobilinogen 0.2 mg/dL (0.2-1.0)
--- NOTE | 2019-03-07 14:22 | EKG ---
Test Reason : ABD PAIN Blood Pressure : / mmHG Vent. Rate : 069 BPM Atrial Rate : 069 BPM P-R Int : 164 ms QRS Dur : 092 ms QT Int : 418 ms P-R-T Axes : 038 021 026 degrees QTc Int : 447 ms Normal sinus rhythm Incomplete right bundle branch block Borderline ECG Confirmed by SHAGGY DRAPER DO ([id number]), material expeditor TITI CHACON ([id number]) on 03/07/2019 2:22:15 PM Referred By: Confirmed By:SHAGGY DRAPER DO
== END 2019-03-05 20:25 | disposition home or self-care (01) ==
LOC: ERS 15:04
DX: R10.13 Epigastric pain (principal); R11.2 Nausea with vomiting, unspecified; R19.7 Diarrhea, unspecified; R50.9 Fever, unspecified; E11.9 Type 2 diabetes mellitus without complications; E78.5 Hyperlipidemia, unspecified; F32.9 Major depressive disorder, single episode, unspecified; Z79.84 Long term (current) use of oral hypoglycemic drugs
CPT/HCPCS: 74177; 80053; 81003; 83690; 84484; 85025; 93005; 96374; 96375; 96376; J2270; J2405